=== PATIENT | female | born 1960 | race Two or more races ===

== ENCOUNTER 2024-03-06 | Inpatient (IN) | payer BC, SELFPAY ==
[2024-03-05 14:47] VITALS: BP 122/74
[2024-03-05 15:26] LABS: ALT (SGPT) 12 U/L (0-35); AST (SGOT) 19 U/L (14-36); Albumin 3.2 g/dl (3.5-5.0); Alkaline Phosphatase 125 U/L (38-126); Blood Urea Nitrogen 18 mg/dl (7-17); Calcium 8.5 mg/dl (8.4-10.2); Carbon Dioxide 30 mmol/L (22-30); Chloride 92 mmol/L (98-107); Glucose 154 mg/dl (70-99); Potassium 3.5 mmol/L (3.5-5.1); Sodium 129 mmol/L (135-145); Total Bilirubin 0.7 mg/dl (0.2-1.3); eGFR > 60.00
[2024-03-05 15:32] LABS: NT-proBNP 244 pg/ml
[2024-03-05 15:42] LABS: Hematocrit 32.5 % (37.0-47.0); Hemoglobin 10.8 g/dL (12.0-16.0); Mean Corp Hgb Conc. 33.2 g/dL (33.0-37.0); Mean Corpuscular Hgb 29.3 pg (27.0-31.0); Mean Corpuscular Volume 88.3 fL (81.0-99.0); Mean Platelet Volume 9.3 fL (7.4-10.4); Platelet Count 354 10^3/uL (130-400); Red Blood Cell Count 3.68 10^6/uL (4.20-5.40); Red Cell Dist. Width 15.1 % (11.5-14.5)
[2024-03-05 17:13] LABS: Absolute Neutrophils -Man Diff 4.5 10^3/uL (1.4-6.5); Band Neutrophils 0 % (0-3); Lymphocytes 31 % (20-51); Monocytes 4 % (2-9); Normal RBC Morphology Yes; Platelets Checked Yes; Segmented Neutrophils 65 % (42-75); Total Cells Counted 100
[2024-03-05 18:00] VITALS: BP 140/75
[2024-03-05 20:00] VITALS: BP 133/98
--- NOTE | 2024-03-05 20:08 | ED.GENMED ---
History of Present Illness
General
Chief Complaint: Abdominal Symptoms
Time Seen by Provider: 03/05/24 18:21
History of Present Illness
History of Present Illness:
63 female with history of metastatic colon cancer presents to the emergency department for evaluation of increasing ascites and abdominal discomfort. Patient just moved here from [place] earlier this week, was being treated at [place]
[facility] for peritoneal carcinomatosis. She did have a CT scan on February 27 revealing a large intramural mass within the large intestine with signs of upstream obstruction, increasing volume ascites, and extensive peritoneal
carcinomatosis as well as omental masses. She last received chemotherapy on 02/26. She also reported underwent paracentesis x 2 in January. Her family decided they wanted to move her to [place] to care for her, but did not coordinate any
transfer of care with her oncology team. Over the past week she has developed progressive worsening SOB and leg edema as well as abd pain. No fevers or chills. In regards to the colonic mass, she reports she has occasional constipation but has moved
her bowels adequately in the past 2 days.
Review of Systems
Review of Systems
Allergies reviewed?: Yes
All Other Systems: ROS reviewed and negative except as documented in HPI and ROS
Phy Exam
Physical Exam
Physical Exam:
GEN: Well appearing, NAD, WDWN
Eyes: PERRLA, EOMs intact, no scleral icterus
HENT: NCAT, oral mucosa moist
Lungs: CTAB, no wheezes, rales, rhonchi, normal chest wall excursion
Cardiac: RRR, no M/R/G, no peripheral edema. Radial pulses 2+ bilat
Abdomen: Distended/protuberant abdomen, grossly nontender
Neuro: AO x 3
MSK: No gross deformity or ecchymosis. Marked edema of the entire legs bilaterally from hips to lower legs
Skin: No rashes, petechiae. Normal color, no pallor or jaundice.
Psych: Calm, cooperative, proper hygiene
Course
Orders/Labs/Results
Orders:
Orders
03/05/24 14:58
Complete Blood Count/With Diff Urgent
Comprehensive Metabolic Panel Urgent
Manual Differential Urgent
NT-proBNP Urgent
03/05/24 16:33
CR Chest - 2 Views Urgent
Comment:
Reason For Exam: sob
03/05/24 16:40
US Abdomen Limited Urgent
Comment: EVAL FOR ASCITES
Reason For Exam: abdominal swelling
03/05/24 20:25
Urinalysis Reflex To Culture Urgent
Date Specimen was Collected: 03/05/24
Time Specimen was Collected: 20:04
Urine Microscopic Reflex Cult Urgent
Abnormal Lab Results
03/05/24 03/05/24
14:58 20:25
RBC 3.68 L 10^6/uL
(4.20-5.40)
Hgb 10.8 L g/dL
(12.0-16.0)
Hct 32.5 L %
(37.0-47.0)
RDW 15.1 H %
(11.5-14.5)
Sodium 129 L mmol/L
(135-145)
Chloride 92 L mmol/L
(98-107)
BUN 18 H mg/dl
(7-17)
Glucose 154 H mg/dl
(70-99)
Total Protein 6.0 L g/dl
(6.3-8.2)
Albumin 3.2 L g/dl
(3.5-5.0)
Urine Ketones Trace A
(Negative)
Urine Bilirubin 1+ A
(Negative)
Urine Urobilinogen 2+ A
(Neg - 1+)
Leukocyte Esterase Rfl Trace A
(Negative)
Urine Bacteria (Reflex) Few A
(Negative)
Urine Yeast Few A
(Negative)
03/05/24 14:58
03/05/24 14:58
Vital Signs
Initial and Last Documented VS:
Initial Vital Signs
Temp Pulse Resp BP Pulse Ox
97.8 F 108 18 122/74 96
03/05/24 14:47 03/05/24 14:47 03/05/24 14:47 03/05/24 14:47 03/05/24 14:47
Last Documented Vital Signs
Temp Pulse Resp BP Pulse Ox
98.3 F 102 16 133/98 99
03/05/24 18:00 03/05/24 20:00 03/05/24 20:00 03/05/24 20:00 03/05/24 20:00
MDM/Problems Addressed
MDM/Problems Addressed:
Patient with significant recurrent abdominal pelvic ascites, she has no significant tenderness at this time however she does appear to be profoundly limited functionally due to the degree of ascites. Unfortunately she did not make any arrangements
with her cancer team as an outpatient to transfer care formally down to this locale, it sounds as though the family intends to continue traveling to [place] for chemotherapy but would like to receive all further health care locally. Patient is
afebrile leukocytosis. I did discuss with interventional radiology for possible outpatient paracentesis however unfortunately as we are at the point of the radiologist will not be feasible. Will admit for IR consult for paracentesis as well as SBP
rule out
*Critical Care Note
Total Time (30-74mins, 75-104mins- exclusive of procedures): Not Applicable
Update Note
Update Note:
Patient reporting sensation of urine retention, postvoid bladder scan with 374 mL, uncertain if this is detecting bladder urine or ascites fluid. Straight cath performed by RN for 15 mL
ED Attending Note
-
Portions of this chart may have been created with voice recognition software.� Occasional wrong word or��sound alike� substitutions may have occurred due to the inherent limitations of voice recognition software.
Discharge Plan
Departure
Patient Disposition: Admit
Date of Disposition: 03/05/24
Time of Disposition: 20:22
Presentation/result/management discussed w/ accepting MD/DO: Hospitalist
Discharge Problem:
Abdominal ascites, Peritoneal carcinomatosis
Prescriptions:
No Action
gabapentin 300 mg Capsule
300 mg PO TID
metoclopramide HCl 10 mg Tablet
10 mg PO DAILYPRN PRN (Reason: gerd)
oxycodone 5 mg Tablet
5 mg PO QID
Patient Comments:
03/05/24: Per family patient fills in [place], unable to crosscheck on PDMP
Janumet 50-1,000 mg Tablet
1 tab PO BIDPRN PRN (Reason: low blood sugar)
ondansetron 4 mg Tablet,Disintegrating
4 mg PO Q8HPRN PRN (Reason: nausea)
Referrals:
CORNELIO, EVI [Other]
Interventions
Interventions:
*Risk Screen - Suicide Last Done: 03/05/24 14:47
*General Assessment Last Done: 03/05/24 14:47
*Neglect/Abuse Screening Last Done: 03/05/24 20:10
ED- Fall Risk Assessment Last Done: 03/05/24 20:10
*ED COVID-19 Vaccine History Last Done: 03/05/24 14:47
QA-Mjkmjp-Cxqgfcshxp Assessment Last Done: 03/05/24 20:10
Discharge Date and Time
Print Language: AUSTRALIAN
[2024-03-05 20:32] LABS: Urine Albumin Trace (Neg - Trace); Urine Bilirubin 1+ (Negative); Urine Character Clear (Clear); Urine Color Yellow; Urine Glucose Negative (Negative); Urine Ketone Trace (Negative); Urine Leukocyte Trace (Negative); Urine Nitrite Negative (Negative); Urine Occult Blood Negative (Negative); Urine Specific Gravity 1.025 (<1.030); Urine Urobilinogen 2+ (Neg - 1+)
--- NOTE | 2024-03-05 20:41 | HPS.HSE ---
Family Physician
-
Family Physician: EVI GRIMES
Chief Complaint
-
Increased abdominal pain/distention times a few days with bodyaches
History of Present Illness
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
February 28, 2024 with enlarging infiltrative rectal tumor with trey metastatic disease, splenic metastases and questionable hepatic metastases. Extensive peritoneal carcinomatosis again is noted this enlarging rectal mass resulting in worsening
colonic obstruction with increased distention proximally there is proximal transverse colon luminal narrowing resulting in compression of the transverse colon which is another consideration for colon cancer. There are multiple distended loops of
small bowel representing focal ileus although partially developing obstruction is secondary possibility there is a large malignant abdominal pelvic ascites increased in quantity. Her son states she was receiving care at [facility] in [place]
but they want her to move here to [place] but she currently has [place] insurance she had chemotherapy on January 30 and February 26 Daxol. She then developed increased abdominal pain, swelling, leg edema, shortness of breath.
According to her family she denies fever, chills, headache, chest pain, palpitations, nausea, vomiting, diarrhea, urinary symptoms.
She has past medical history of primary ovarian cancer Dx 2017 status post hysterectomy, bilateral salpingo-oophorectomy, 2019 ovarian cancer with mets to omentum requiring debulking of abdominal cavity, 8 rounds of chemotherapy every 20 days ,
history of 2021 Avstin and Lynparza till September 2022 then repeat scan per son was not well. Chemo was switched to elchara x 3 doses September 2022 she was unable to tolerate then was switched to Doxil January 2024 and February 26 she received a
second dose. She has required abdominal paracentesis x 2. She follows with Dr. Rodriguez at [facility] in [place].
Family is looking for local care here and would like to discuss with case management regarding palliative care versus hospice care if they are able to get her [employer] insurance as she is here on original travel visa and now asylum. Other past
medical history includes neuropathy bilateral legs, chronic nausea chronic abdominal pain, DM2.
Medical History
Past Medical History
Past Medical History: Reports Other
Additional Past Medical History:
primary ovarian cancer Dx 2017 status post hysterectomy, bilateral salpingo-oophorectomy, 2019 ovarian cancer with mets to omentum requiring debulking of abdominal cavity, 8 rounds of chemotherapy every 20 days
history of 2021 Avstin and Lynparza till September 2022 then repeat scan per son was not well.
Chemo was switched to elchara x 3 doses September 2022 she was unable to tolerate then was switched to Doxil January 2024 and February 27, 2024 she received a second dose.
She has required abdominal paracentesis x 2. She follows with Dr. Rodriguez at [facility] in [place].
Chronic neuropathy bilateral legs left greater than right
DM2
Chronic pain
Chronic nausea
Past Surgical History: Reports Other
Additional Past Surgical History:
Paracentesis x 2
Social History
Tobacco: Non-smoker
Alcohol: None
Drug: None
Personal: Single
Living: With Family
Employment: Retired
Family History
Family History: Other (Patient's daughter of ovarian cancer age 40 same type as patient per son)
Allergies / Home Medications
Allergies reflects when Allergies were last updated in [facility].
Home Medications with original date entered in [facility]
Allergy/Medication List:
Allergies
Allergy/AdvReac Type Severity Reaction Status Date / Time
Penicillins Allergy Unknown Verified 03/05/24 14:51
Home Medications
gabapentin 300 mg capsule 300 mg PO TID 03/05/24
metoclopramide HCl 10 mg tablet 10 mg PO DAILYPRN PRN gerd 03/05/24
ondansetron 4 mg disintegrating tablet 4 mg PO Q8HPRN PRN nausea 03/05/24
oxycodone 5 mg tablet 5 mg PO QID 03/05/24
sitagliptin phosphate 50 mg-metformin 1,000 mg tablet (Janumet) 1 tab PO BIDPRN PRN low blood sugar 03/05/24
Review of Systems
-
History Source: Family (Daughter and son at bedside)
A 12 point ROS was completed and negative except as noted: Yes
Constitutional: Reports Weight Gain; Denies Fever or Chills
EENT: Denies Sore Throat or Runny Nose
Respiratory: Reports Trouble Breathing; Denies Cough
Cardiac: Denies Chest Pain or Diaphoresis
Abdomen/GI: Reports Abdominal Pain (Increased abdominal girth) and Anorexia; Denies Nausea, Vomiting, Diarrhea or Constipated
: Denies Dysuria, Frequency, Flank Pain, Incontinence or Difficulty Voiding
Musculoskeletal: Reports Edema (+2 from lower feet to upper thighs); Denies Joint Pain
Skin: Denies Itching or Rash
Neurological: Reports Weakness
Endocrine: Reports No Symptoms
Hematologic/Lymphatic: Reports No Symptoms
Psych: Reports Calm
Physical Exam
Vital Signs
Vital Signs
Temp Pulse Resp BP Pulse Ox
98.3 F 111 16 140/75 97
03/05/24 18:00 03/05/24 18:00 03/05/24 18:00 03/05/24 18:00 03/05/24 18:00
Physical Exam
General: Conversant, Pain, Obese and Other (None Nigerian speaking patient speaks Syriac); No Fever or Chills
HEENT: NormoCephalic, Anicteric, Moist mucous membranes, PERRLA and [place] Conjunctivae
Respiratory: Clear; No Wheezes, Rales or Rhonchi
Cardiac: S1/S2 and Regular Rhythm; No Murmur, Rub or Gallop
GI: Other (Distended abdomen with large amount of ascites)
Rectal: Deferred by Provider
Genito-urinary: Deferred by me
Musculoskeletal: No Clubbing, No Cyanosis, Edema, Left Lower Extremity (+2 from feet to upper thighs) and Edema, Right Lower Extremity (+2 from feet to upper thighs); No Edema, Left Upper Extremity or Edema, Right Upper Extremity
Skin: Warm and Dry; No Rash
Neuro: Awake, Alert (Patient will say occasional words to daughter and son however in sleetmute language I am not sure if she is oriented), No Motor Deficits and Cranial Nerves Intact; No Slurred Speech, Facial Droop or Tremors
Psych: Calm
Laboratory Results
-
03/05/24 14:58
03/05/24 14:58
Laboratory Results
Total Bilirubin 0.7 mg/dl (0.2-1.3) 03/05/24 14:58
AST 19 U/L (14-36) 03/05/24 14:58
ALT 12 U/L (0-35) 03/05/24 14:58
Alkaline Phosphatase 125 U/L (38-126) 03/05/24 14:58
Impression/Plan
-
Impression/plan:
Admit to [facility]
#Moderate volume ascites left upper quadrant/left lower quadrant, right upper quadrant/right lower quadrant secondary to peritoneal carcinomatosis
History of paracentesis times 13 January 2024
WBC 7, 98.3F, HR 111, 140/75
-Consult Interventional radiology for paracentesis
-Obtain records from [facility] oncology
-consult case mgt regarding getting pa insurance from [place] insurance to be able to receive paracentesis here, oncology visit discussion with palliative versus hospice care
-Hold oxycodone 5 mg p.o. 4 times daily changed to IV morphine as needed given developing obstruction
Ultrasound limited: Moderate volume ascites in the right quadrant, right lower quadrant, left upper quadrant and left lower quadrant
-Primary ovarian CA with new metastases primary ovarian cancer to rectum, with trey metastatic disease, splenic metastases, hepatic metastases
#Primary ovarian cancer Dx 2017 status post hysterectomy, bilateral salpingo-oophorectomy
Return of cancer 2019 Omomentum/abdominal cavity requiring debulking of abdomen and chemotherapy started.
-Chemo 2020 unsure name then started Avastin�2022 with Lynparza till September 2022
Metastases of primary ovarian cancer was started on elchara September 30 23 x 3> Doxil January 2024 and February 27, 2024 at [facility]
-Needs case management for palliative versus hospice care but needs [place] insurance
-Consult unk
CT abdomen pelvis with contrast on 02/23/2024 per patient's records
1. Interval disease with infiltrative rectal tumor with trey metastatic disease, splenic metastases and questionable hepatic metastases.
2 Extensive peritoneal carcinomatosis again noted enlarging rectal mass resulting in worsening colonic obstruction with increased distention proximally
3.Increased prominence of the soft tissue along the transverse colon resulting in luminal narrowing and extrinsic compression of the transverse colon.
4.Peritoneal deposits becoming conspicuous along the gastroduodenal junction along with increased narrowing of the gastroduodenal junction.
5. multiple mildly distended loops of small bowel concerning for developing obstruction
#Developing obstruction
-N.p.o.
-Will change oxycodone 5 mg p.o. 4 times daily to morphine 2 mg mild pain, 4 mg severe pain
-IV Zofran as needed
#Hypervolemic hyponatremia adding of ascites
NA 129
Urine NA, urine Osmo, serum Osmo, TSH with free T4 reflex
##DM2
Hold Janumet
Accu-Cheks with SSI low
- n.p.o.
#Normocytic anemia
Hgb 10.8, MCV 88.3
#Neuropathy bilateral legs left greater than right secondary to chemo
-Continue gabapentin 300 mg 3 times daily
DNR per patient's son RENO�[phone] please discuss all care with patient's son including any palliative/hospice patient's daughter also in agreement at bedside andnilufar
[2024-03-05 21:06] LABS: Urine Hyaline Cast >15 /LPF (0-2); Urine Squamous Cell >30 /LPF (Few)
[2024-03-05 21:07] LABS: Urine Bacteria Few (Negative); Urine Red Blood Cell 0-2 /HPF (0-2); Urine Yeast Few (Negative)
--- NOTE | 2024-03-05 22:22 | W.PN.UPDATE ---
Update Note
Progress Note Update
This is an addendum to the H&P written by Bettina Lemus on 03/05/2024.
Patient seen and examined independently with PLASTIC MOLDING OPERATOR.
63-year-old female past medical history of ovarian cancer with metastases to rectum, colon, spleen, colonic obstruction, peritoneal carcinomatosis on chemotherapy last received at [facility] last week presenting with acute abdominal pain and
distention. Abdominal ultrasound shows moderate ascites.
IR consulted for therapeutic paracentesis. Family is realistic of patient's condition and are agreeable for case management/ essentially hospice.
[2024-03-05 22:30] VITALS: BP 132/71
[2024-03-06] VITALS (9 sets, daily range): BP systolic 98–131; BP diastolic 63–84; BMI 27.7
[2024-03-06] MEDS: MORPHINE SULFATE 4 MG IV (01:01)
--- NOTE | 2024-03-06 01:43 | PTCARENOTE ---
Patient arrived to unit from ED via stretcher. Patient able to safely ambulate into room 334 with assist x1. Patient Canadian speaking, son and daughter at bedside. Patient c/o pain. No IV, IV team notified. IV placed by BARGE CAPTAIN. PRN morphine
administered. Oriented to unit. Call hinds within reach. Plan of care ongoing.
[2024-03-06] MEDS: MORPHINE SULFATE 2 MG IV (06:02)
[2024-03-06 06:43] LABS: % Basophils 0.4 % (0-2); % Eosinophils 1.1 % (0-6); % Immature Granulocytes 1.2 % (0-0.5); % Lymphocytes 26.1 % (20.5-51.1); % Monocytes 4.6 % (1.7-9.3); % Neutrophils 66.6 % (42.2-75.2); Absolute Eosinophils 0.1 10^3/uL (0-0.7); Absolute Immature Granulocytes 0.1 10^3/uL (0-0.05); Absolute Lymphocytes 1.5 10^3/uL (1.2-3.4); Absolute Monocytes 0.3 10^3/uL (0.1-0.6); Absolute Neutrophils 3.8 10^3/uL (1.4-6.5); Hematocrit 29.8 % (37.0-47.0); Mean Corp Hgb Conc. 33.6 g/dL (33.0-37.0); Mean Corpuscular Hgb 29.3 pg (27.0-31.0); Mean Corpuscular Volume 87.4 fL (81.0-99.0); Mean Platelet Volume 9.5 fL (7.4-10.4); Nucleated Red Blood Cells % 0 %; Platelet Count 320 10^3/uL (130-400); Red Blood Cell Count 3.41 10^6/uL (4.20-5.40); Red Cell Dist. Width 14.9 % (11.5-14.5); White Blood Cell Count 5.7 10^3/uL (4.8-10.8)
[2024-03-06 06:57] LABS: Osmolality Serum 277 mOsm/kg (275-300)
[2024-03-06 07:07] LABS: ALT (SGPT) < 10 U/L (0-35); AST (SGOT) 19 U/L (14-36); Albumin 2.7 g/dl (3.5-5.0); Alkaline Phosphatase 109 U/L (38-126); Blood Urea Nitrogen 17 mg/dl (7-17); Calcium 7.8 mg/dl (8.4-10.2); Carbon Dioxide 30 mmol/L (22-30); Chloride 93 mmol/L (98-107); Estimated Creatinine Clearance 74 ml/min; Glucose 95 mg/dl (70-99); Potassium 3.4 mmol/L (3.5-5.1); Sodium 130 mmol/L (135-145); Total Bilirubin 0.7 mg/dl (0.2-1.3); Total Protein 5.2 g/dl (6.3-8.2); eGFR > 60.00
[2024-03-06 07:37] LABS: TSH Reflex To Free T4 5.77 uIU/ml (0.47-4.68)
[2024-03-06 08:08] LABS: Free T4 1.15 ng/dl (0.78-2.19)
[2024-03-06] MEDS: ZOFRAN 4 MG IV (08:21)
[2024-03-06] MEDS: NEURONTIN 300 MG PO ×3 (08:22→21:13)
--- NOTE | 2024-03-06 11:07 | CM ---
Addendum entered by Charline Gaytan 03/06/24 14:36:
Family Physician verified: Swetha Smith MD; [address] [facility], [place] [address];
Addendum entered by Charline Gaytan 03/06/24 14:01:
No Family Physician identified; asked son to provide
Offered [facility], [facility]
Addendum entered by Charline Gaytan 03/06/24 13:53:
CM spoke with [facility] vinicio; per her instructions, home health referral submitted via [facility] to [facility]
Addendum entered by Charline Gaytan 03/06/24 13:26:
CM spoke to patient's son, Yogesh Carrillo, via phone. Son speaks Turkmen.
Son verified that the patient resides in [place] but is currently living with him at his home in [place], [place]
Son verified patient's health insurance; [facility] [employer] # [id number]
Son's Address: [address] [place] [address], [place], [place]
Son's Cell ; and alternate cell phone # [phone]
CM spoke with Admissions Office via phone and provided above information
Addendum entered by Charline Gaytan 03/06/24 13:22:
Hospice is not in patient's insurance network
Advised CM to send referral to alternative hospice agencies
Original Note:
Case Management Consult completed; Hospice Referral submitted to Hospice via [facility]
[2024-03-06] MEDS: OMNIPAQUE 50 ML PO (11:09)
[2024-03-06 12:05] LABS: Body Fluid Albumin 1.6 g/dl; Body Fluid Amylase < 30 U/L
[2024-03-06 12:06] LABS: Body Fluid LDH 137 U/L; Body Fluid Protein 3.3 g/dl
[2024-03-06] MEDS: ROXICODONE 5 MG PO ×3 (12:22→22:32)
[2024-03-06 12:42] LABS: Body Fluid WBC 601 /CUMM
[2024-03-06 12:43] LABS: Body Fluid Mononuclear 93.8 %; Body Fluid Polymorphonuclear 6.2 %
[2024-03-06 13:00] LABS: Body Fluid Second Tech CMB
--- NOTE | 2024-03-06 13:19 | W.PN.HOSP.TC ---
Today's Communication/Plan
-
CT abdomen pelvis with IV/oral contrast
Maintain full liquid diet
Increased pain medication
High risk of bowel obstruction and related complication
Poor prognosis and hospice appropriate
Assessment / Plan
Assessment / Plan
CT abdomen pelvis with contrast on 02/23/2024 per patient's records
1. Interval disease with infiltrative rectal tumor with trey metastatic disease, splenic metastases and questionable hepatic metastases.
2 Extensive peritoneal carcinomatosis again noted enlarging rectal mass resulting in worsening colonic obstruction with increased distention proximally
3.Increased prominence of the soft tissue along the transverse colon resulting in luminal narrowing and extrinsic compression of the transverse colon.
4.Peritoneal deposits becoming conspicuous along the gastroduodenal junction along with increased narrowing of the gastroduodenal junction.
5. multiple mildly distended loops of small bowel concerning for developing obstruction

1. Moderate ascites
-Ultrasound abdomen showing moderate ascites
-With history of known metastatic ovarian cancer/peritoneal carcinomatosis presumed malignant in nature unless proven otherwise
-Patient underwent paracentesis with drainage of 3.7 L of clear ascitic fluid
-Fluid studies showing T WBC 601, 94% mononuclear cell.
2. Primary ovarian cancer diagnosed in 2017
Metastatic to rectum/liver/spleen/liver
S/p hysterectomy and BSO
Recurrence in 2019 requiring debulking surgery/chemotherapy
-Chemo 2020 unsure name then started Avastin
�2021 with Lynparza till September 2022
-Metastases of primary ovarian cancer was started on elchara in September 30 23 x 3 > Doxil January 2024 and February 27, 2024 at [facility]
3. Partial colon obstruction
Gastroduodenal junction obstruction
Small bowel obstruction
-Significant peritoneal carcinomatosis with CTAP from outside facility showing multiple dilated small bowel loops concerning developing small bowel obstruction
-Involving gastroduodenal junction and possible gastric outlet obstruction developing as well
-Reported transverse colon lesion as well causing colonic obstruction
-Repeat CT abdomen pelvis has been ordered
-Case discussed with gastroenterology and may involve CRS/GI for colonic stenting if appropriate as part of comfort measures
4. Hyponatremia
-presumed to be malignancy related
-May have component of hypervolemic hyponatremia as well
5. NIDDM
-Maintain on Janumet
6.Normocytic anemia
-Hgb 10.8, MCV 88.3
7. Chemotherapy-induced neuropathy
-Continue gabapentin 300 mg 3 times daily
DNR per patient's son RENO�[phone] please discuss all care with patient's son including any palliative/hospice patient's daughter also in agreement at bedside
Care plan discussed with other regulatory affairs consultant off consults.
Discussed with Patient Son at Bedside
Case management updated
Total time spent : 55 mins
I personally saw and examined the patient.
I have reviewed all diagnostic interpretations and treatment plans as written.
Time includes patient management by me, time spent at the patients bedside, time to review lab and imaging results, discussing patient care, documentation in the medical record, and time spent with the family or caregiver and discussing care plan
with RN/Consultants.
Anticipated Discharge: 24 - 48 hours
Subjective/Interval History
-
Date of Service: March 06, 2024
Patient having some diffuse abdominal discomfort
Had bowel movement/passing gas last night
Some nausea no vomiting
Vitally stable
Objective Data
-
Labs:
Laboratory Results
03/06/24
05:51
WBC 5.7
Hgb 10.0 L
Hct 29.8 L
Plt Count 320
Sodium 130 L
Potassium 3.4 L
Chloride 93 L
Carbon Dioxide 30
BUN 17
Creatinine 0.7
Glucose 95
Calcium 7.8 L
Total Bilirubin 0.7
AST 19
ALT < 10
Alkaline Phosphatase 109
Vital Signs:
Vital Signs
Temp Pulse Resp BP Pulse Ox
97.2 F 107 16 98/63 97
03/06/24 11:08 03/06/24 11:08 03/06/24 11:08 03/06/24 11:08 03/06/24 11:08
I&O
03/05/24 03/06/24 03/07/24
06:59 06:59 06:59
Output Total 15 / 15
Balance -15 / -15
Review of Systems
-
Respiratory: Reports No Symptoms
Cardiac: Reports No Symptoms
Abdomen/GI: Reports Abdominal Pain; Denies Nausea or Vomiting
Physical Exam
-
General: No Apparent Distress and Comfortable
HEENT: Negative Oxygen
Respiratory: Clear to Auscultation
Cardiac: Regular Rhythm and S1/S2; Negative Murmur or Rub
GI: Soft, Tender (minimal and diffuse) and Distended; Negative Normal Bowel Sounds (Decreased bowel sounds)
Musculoskeletal: No Edema
Neuro: Awake, Alert, Oriented, No Motor Deficits and Nonfocal/Grossly Intact
Psych: Calm
--- NOTE | 2024-03-06 14:00 | HOSPNOTE ---
Hospice referral received. We are not a participating provider with patients insurance for hospice services. CM updated.
[2024-03-06 20:27] LABS: Osmolality Urine 645 mOsm/kg (300-900)
[2024-03-06 20:33] LABS: Urine Sodium < 5 mmol/L (30-90)
--- NOTE | 2024-03-06 22:19 | PTCARENOTE ---
Patient with HR sustaining 130-140s for period of time throughout the evening. Patient OOB to bathroom at one point during this elevation -- asymptomatic and no complaints. BPs soft, 110/70, HR 135, no medications ordered PRN for rate control.
Notified DOMENIC Lopez -- would like patient to stay in bed if possible and encourage bed rest at this time. As patient/family is considering hospice/palliative care -- will discuss with day team for medication options if needed. No new interventions
at this time. Will continue to moitor.
[2024-03-07 03:00] VITALS: BP 97/71
[2024-03-07] MEDS: ROXICODONE 10 MG PO ×3 (03:05→21:17)
[2024-03-07 05:32] VITALS: BMI 26.4
[2024-03-07 07:05] VITALS: BP 111/77
[2024-03-07 08:17] LABS: ALT (SGPT) < 10 U/L (0-35); AST (SGOT) 19 U/L (14-36); Albumin 2.6 g/dl (3.5-5.0); Alkaline Phosphatase 103 U/L (38-126); Blood Urea Nitrogen 18 mg/dl (7-17); Calcium 7.9 mg/dl (8.4-10.2); Carbon Dioxide 25 mmol/L (22-30); Chloride 92 mmol/L (98-107); Estimated Creatinine Clearance 73 ml/min; Glucose 138 mg/dl (70-99); Potassium 3.8 mmol/L (3.5-5.1); Sodium 128 mmol/L (135-145); Total Bilirubin 1.1 mg/dl (0.2-1.3); Total Protein 4.9 g/dl (6.3-8.2); eGFR > 60.00
[2024-03-07] MEDS: NEURONTIN 300 MG PO ×3 (08:26→21:17)
[2024-03-07] MEDS: ZOFRAN 4 MG IV ×3 (08:26→23:23)
--- NOTE | 2024-03-07 10:47 | CON.GI ---
Consultation
-
Date/Time Consultation Requested: 03/06/24 929
Date/Time Consultation Performed: 03/07/24 0900
Requesting Provider: Dr Albino Salvador
Performing Provider: Dr Pedro Luis Chapman / Carisa Champagne PA-C
Reason for Consultation: metastaic cancer / partial colon obstuction
Medical History
Chief Complaint / HPI
Chief Complaint: abdominal pain
History of Present Illness:
This is a 63 year old female with a past medical history of ovarian cancer (dx'd 2017) with metastasis to peritoneum, spleen, liver, and rectum who was previously living in [place] (Oncology care was at [facility]) with increasing
abdominal pain and distension. Per patient's prior records, CT abdomen/pelvis from 02/23/24 showed extensive peritoneal carcinomatosis with enlarging rectal mass resulting in worsening colonic obstruction with increased distention proximally.
Infiltrative rectal tumor with trey metastatic disease noted, as well as splenic metastasis and questionable hepatic metastasis. Increased prominence of the soft tissue along the transverse colon, resulting in luminal narrowing and extrinsic
compression of the transverse colon, as well as peritoneal deposits along the gastroduodenal junction with increased narrowing at the gastroduodenal junction. Mildly distended loops of small bowel which are concerning for developing obstruction.
GI is asked to consult on this case for potential colonic stenting. She did undergo paracentesis yesterday with 3.7 liters removed. She does feel somewhat better after paracentesis. Still with nausea and pain, although Zofran and pain medications
are helping. She did pass a small bowel movement last night and is passing gas.
Past Medical History
Past Medical History: NIDDM and Other (primary ovarian cancer Dx 2017 status post hysterectomy, bilateral salpingo-oophorectomy, 2019 ovarian cancer with mets to omentum requiring debulking of abdominal cavity, 8 rounds of chemotherapy)
Social History
Tobacco: Non-Smoker
Alcohol: None
Drug: None
Living: With Family
Allergies / Home Medications
Allergy/AdvReac Type Severity Reaction Status Date / Time
Penicillins Allergy Unknown Verified 03/05/24 14:51
�Medication �Instructions �Recorded
gabapentin 300 mg capsule 300 mg PO TID Pain 03/05/24
metoclopramide HCl 10 mg tablet 10 mg PO DAILYPRN PRN gerd 03/05/24
ondansetron 4 mg disintegrating 4 mg PO Q8HPRN PRN nausea 03/05/24
tablet
oxycodone 5 mg tablet 5 mg PO QID Pain 03/05/24
sitagliptin phosphate 50 1 tab PO BIDPRN PRN low blood sugar 03/05/24
mg-metformin 1,000 mg tablet
(Janumet)
Review of Systems
-
History Source: Patient, Family and Other (prior records)
Vital Signs
Temp Pulse Resp BP Pulse Ox
97.7 F 111 17 111/77 97
03/07/24 07:05 03/07/24 07:05 03/07/24 07:05 03/07/24 07:05 03/07/24 07:05
Physical Exam
Exam
General: Well Developed, Well Nourished and No Apparent Distress
Respiratory: Clear
Cardiac: Regular Rhythm
GI: Soft, Non Tender, Normal Bowel Sounds and Distended
Skin: Warm and Dry
Neuro: Awake and Alert
Psych: Calm
Results
WBC 5.7 10^3/uL (4.8-10.8) 03/06/24 05:51
Hgb 10.0 g/dL (12.0-16.0) L 03/06/24 05:51
Hct 29.8 % (37.0-47.0) L 03/06/24 05:51
MCV 87.4 fL (81.0-99.0) 03/06/24 05:51
Plt Count 320 10^3/uL (130-400) 03/06/24 05:51
Absolute Neuts (auto) 3.8 10^3/uL (1.4-6.5) 03/06/24 05:51
Sodium 128 mmol/L (135-145) L 03/07/24 06:37
Potassium 3.8 mmol/L (3.5-5.1) 03/07/24 06:37
Chloride 92 mmol/L (98-107) L 03/07/24 06:37
Carbon Dioxide 25 mmol/L (22-30) 03/07/24 06:37
BUN 18 mg/dl (7-17) H 03/07/24 06:37
Creatinine 0.7 mg/dL (0.6-1.0) 03/07/24 06:37
Calcium 7.9 mg/dl (8.4-10.2) L 03/07/24 06:37
Total Bilirubin 1.1 mg/dl (0.2-1.3) 03/07/24 06:37
AST 19 U/L (14-36) 03/07/24 06:37
ALT < 10 U/L (0-35) 03/07/24 06:37
Alkaline Phosphatase 103 U/L (38-126) 03/07/24 06:37
Diagnostic Image Results:
CT abdomen pelvis with contrast on 02/23/2024 per patient's records
1. Interval disease with infiltrative rectal tumor with trey metastatic disease, splenic metastases and questionable hepatic metastases.
2 Extensive peritoneal carcinomatosis again noted enlarging rectal mass resulting in worsening colonic obstruction with increased distention proximally
3.Increased prominence of the soft tissue along the transverse colon resulting in luminal narrowing and extrinsic compression of the transverse colon.
4.Peritoneal deposits becoming conspicuous along the gastroduodenal junction along with increased narrowing of the gastroduodenal junction.
5. multiple mildly distended loops of small bowel concerning for developing obstruction
Prior GI Procedures:
EGD:
Colonoscopy:
Assessment / Plan
-
63 year old female with extensive metastatic ovarian cancer with peritoneal caricnomatosis, with CT findings of partial colon obstruction, gastroduodenal junction narrowing and possible developing small bowel obstruction, who at this time is passing
gas and small amount of stool, and s/p paracentesis yesterday with removal of 3.7 liters of ascitic fluid. GI is asked to consult patieint for consideration of colonic stenting.
IMPRESSION / PLAN:
Extensive metastatic ovarian cancer with complicated partial colon obstruction, gastroduodenal junction narrowing and possible developing small bowel obstruction
- she did have repeat CT imaging yesterday, awaiting radiology read to ensure no progression
- given the extensive nature of her metastatic disease, uncertain if patient will be a candidate for colonic stenting. Dr. Chapman to discuss further with advanced endoscopist, Dr. Pederson
- await Oncology consult
- recommend Palliative Care consultation given poor prognosis
-
-
Thank you for consultation and allowing me to participate in the patient's care. Please call the manager provider relations GI physician during the after hours with any questions or concerns.
[2024-03-07 10:48] LABS: % Basophils 0.4 % (0-2); % Eosinophils 0.1 % (0-6); % Immature Granulocytes 1.4 % (0-0.5); % Lymphocytes 16.7 % (20.5-51.1); % Monocytes 3.4 % (1.7-9.3); Absolute Immature Granulocytes 0.1 10^3/uL (0-0.05); Absolute Lymphocytes 1.4 10^3/uL (1.2-3.4); Absolute Monocytes 0.3 10^3/uL (0.1-0.6); Absolute Neutrophils 6.6 10^3/uL (1.4-6.5); Hemoglobin 10.6 g/dL (12.0-16.0); Mean Corp Hgb Conc. 33.1 g/dL (33.0-37.0); Mean Corpuscular Hgb 29.4 pg (27.0-31.0); Mean Corpuscular Volume 88.6 fL (81.0-99.0); Mean Platelet Volume 10.2 fL (7.4-10.4); Nucleated Red Blood Cells % 0 %; Platelet Count 319 10^3/uL (130-400); Red Blood Cell Count 3.61 10^6/uL (4.20-5.40); Red Cell Dist. Width 15.1 % (11.5-14.5); White Blood Cell Count 8.4 10^3/uL (4.8-10.8)
[2024-03-07 11:05] VITALS: BP 117/73
--- NOTE | 2024-03-07 13:28 | W.PN.HOSP.TC ---
Today's Communication/Plan
-
await ct a/p report
continue liquid diet
pain control
eventual home hospice placement
Assessment / Plan
Assessment / Plan
CT abdomen pelvis with contrast on 02/23/2024 per patient's records
1. Interval disease with infiltrative rectal tumor with trey metastatic disease, splenic metastases and questionable hepatic metastases.
2 Extensive peritoneal carcinomatosis again noted enlarging rectal mass resulting in worsening colonic obstruction with increased distention proximally
3.Increased prominence of the soft tissue along the transverse colon resulting in luminal narrowing and extrinsic compression of the transverse colon.
4.Peritoneal deposits becoming conspicuous along the gastroduodenal junction along with increased narrowing of the gastroduodenal junction.
5. multiple mildly distended loops of small bowel concerning for developing obstruction

1. Moderate ascites
-Ultrasound abdomen showing moderate ascites
-With history of known metastatic ovarian cancer/peritoneal carcinomatosis presumed malignant in nature unless proven otherwise
-Patient underwent paracentesis with drainage of 3.7 L of clear ascitic fluid
-Fluid studies showing T WBC 601, 94% mononuclear cell.
2. Primary ovarian cancer diagnosed in 2016
Metastatic to rectum/liver/spleen/liver
S/p hysterectomy and BSO
Recurrence in 2019 requiring debulking surgery/chemotherapy
-Chemo 2020 unsure name then started Avastin
�2021 with Lynparza till September 2022
-Metastases of primary ovarian cancer was started on elchara in September 30 23 x 3 > Doxil January 2024 and February 27, 2024 at [facility]
3. Partial colon obstruction
Gastroduodenal junction obstruction
Small bowel obstruction
-Significant peritoneal carcinomatosis with CTAP from outside facility showing multiple dilated small bowel loops concerning developing small bowel obstruction
-Involving gastroduodenal junction and possible gastric outlet obstruction developing as well
-Reported transverse colon lesion as well causing colonic obstruction
-Repeat CT abdomen pelvis has been done, report is pending.
-Case discussed with GI.
4. Hyponatremia
-presumed to be malignancy related
-May have component of hypervolemic hyponatremia as well
5. NIDDM
-Maintain on Janumet
6.Normocytic anemia
-Hgb 10.8, MCV 88.3
7. Chemotherapy-induced neuropathy
-Continue gabapentin 300 mg 3 times daily
DNR per patient's son [phone] please discuss all care with patient's son including any palliative/hospice patient's daughter also in agreement at bedside
Total time spent : 52 mins
I personally saw and examined the patient.
I have reviewed all diagnostic interpretations and treatment plans as written.
Time includes patient management by me, time spent at the patients bedside, time to review lab and imaging results, discussing patient care, documentation in the medical record, and time spent with the family or caregiver and discussing care plan
with RN/Consultants.
Anticipated Discharge: 24 - 48 hours
Subjective/Interval History
-
Date of Service: March 07, 2024
Difficulty passing gas today, feeling bloated
Some nausea no vomiting
Objective Data
-
Labs:
Laboratory Results
03/07/24
06:37
WBC 8.4
Hgb 10.6 L
Hct 32.0 L
Plt Count 319
Sodium 128 L
Potassium 3.8
Chloride 92 L
Carbon Dioxide 25
BUN 18 H
Creatinine 0.7
Glucose 138 H
Calcium 7.9 L
Total Bilirubin 1.1
AST 19
ALT < 10
Alkaline Phosphatase 103
Vital Signs:
Vital Signs
Temp Pulse Resp BP Pulse Ox
97.6 F 110 17 117/73 97
03/07/24 11:05 03/07/24 11:05 03/07/24 11:05 03/07/24 11:05 03/07/24 11:05
I&O
03/06/24 03/07/24 03/08/24
06:59 06:59 06:59
Intake Total 240 / 240
Output Total 15 / 15
Balance -15 / -15 240 / 240
Review of Systems
-
Respiratory: Reports No Symptoms
Cardiac: Reports No Symptoms
Abdomen/GI: Reports No Symptoms
Physical Exam
-
General: No Apparent Distress and Comfortable
HEENT: Negative Oxygen
Respiratory: Clear to Auscultation
Cardiac: Regular Rhythm and S1/S2; Negative Murmur or Rub
GI: Soft, Tender (minimal and diffuse) and Distended; Negative Normal Bowel Sounds (Decreased bowel sounds)
Musculoskeletal: No Edema
Neuro: Awake, Alert, Oriented, No Motor Deficits and Nonfocal/Grossly Intact
Psych: Calm
[2024-03-07 15:00] VITALS: BP 102/59
[2024-03-07 19:30] VITALS: BP 98/70
[2024-03-07 23:35] VITALS: BP 107/65
[2024-03-08 03:45] VITALS: BP 115/69
[2024-03-08 06:00] VITALS: BMI 26.4
[2024-03-08 06:40] LABS: % Basophils 0.5 % (0-2); % Eosinophils 0.2 % (0-6); % Immature Granulocytes 1.3 % (0-0.5); % Lymphocytes 15.8 % (20.5-51.1); % Monocytes 4.4 % (1.7-9.3); % Neutrophils 77.8 % (42.2-75.2); Absolute Immature Granulocytes 0.1 10^3/uL (0-0.05); Absolute Monocytes 0.3 10^3/uL (0.1-0.6); Absolute Neutrophils 4.8 10^3/uL (1.4-6.5); Hematocrit 29.8 % (37.0-47.0); Hemoglobin 9.7 g/dL (12.0-16.0); Mean Corp Hgb Conc. 32.6 g/dL (33.0-37.0); Mean Corpuscular Hgb 29.2 pg (27.0-31.0); Mean Corpuscular Volume 89.8 fL (81.0-99.0); Mean Platelet Volume 9.5 fL (7.4-10.4); Nucleated Red Blood Cells % 0 %; Platelet Count 272 10^3/uL (130-400); Red Blood Cell Count 3.32 10^6/uL (4.20-5.40); White Blood Cell Count 6.2 10^3/uL (4.8-10.8)
[2024-03-08] MEDS: ZOFRAN 4 MG IV (06:49)
[2024-03-08 07:05] VITALS: BP 110/63
[2024-03-08 07:08] LABS: ALT (SGPT) < 10 U/L (0-35); AST (SGOT) 17 U/L (14-36); Albumin 2.4 g/dl (3.5-5.0); Alkaline Phosphatase 110 U/L (38-126); Blood Urea Nitrogen 16 mg/dl (7-17); Calcium 7.9 mg/dl (8.4-10.2); Carbon Dioxide 27 mmol/L (22-30); Chloride 92 mmol/L (98-107); Estimated Creatinine Clearance 73 ml/min; Glucose 124 mg/dl (70-99); Potassium 3.8 mmol/L (3.5-5.1); Sodium 128 mmol/L (135-145); Total Bilirubin 0.8 mg/dl (0.2-1.3); Total Protein 4.8 g/dl (6.3-8.2); eGFR > 60.00
[2024-03-08] MEDS: ROXICODONE 5 MG PO (09:20)
[2024-03-08] MEDS: NEURONTIN 300 MG PO ×3 (09:20→20:44)
--- NOTE | 2024-03-08 14:06 | W.PN.HOSP.TC ---
Today's Communication/Plan
-
see note
Assessment / Plan
Assessment / Plan
CT abdomen pelvis with contrast on 02/23/2024 per patient's records
1. Interval disease with infiltrative rectal tumor with trey metastatic disease, splenic metastases and questionable hepatic metastases.
2 Extensive peritoneal carcinomatosis again noted enlarging rectal mass resulting in worsening colonic obstruction with increased distention proximally
3.Increased prominence of the soft tissue along the transverse colon resulting in luminal narrowing and extrinsic compression of the transverse colon.
4.Peritoneal deposits becoming conspicuous along the gastroduodenal junction along with increased narrowing of the gastroduodenal junction.
5. multiple mildly distended loops of small bowel concerning for developing obstruction
CT a/p with IV/Oral contrast
Official read is not in -per radiology there is a glitch in EMR, will try to correct tomorrow. Short impression report provided by radiology over [place] text is just below
1). There are multiple peritoneal implants as detailed above which if clinically indicated, could be best further evaluated with PET scan including an area of soft tissue prominence at the distal sigmoid colon which may be malignant or secondary to
incomplete distention.
2). There is moderately extensive partially loculated ascites throughout the abdomen and pelvis.
3). There are approximately 8 subcentimeter low density splenic lesions which may be benign or malignant and could also be further evaluated with PET scan

1. Moderate ascites
-Ultrasound abdomen showing moderate ascites
-With history of known metastatic ovarian cancer/peritoneal carcinomatosis presumed malignant in nature unless proven otherwise
-Patient underwent paracentesis with drainage of 3.7 L of clear ascitic fluid
-Fluid studies showing T WBC 601, 94% mononuclear cell.
2. Primary ovarian cancer diagnosed in 2017
Metastatic to rectum/liver/spleen/liver
S/p hysterectomy and BSO
Recurrence in 2019 requiring debulking surgery/chemotherapy
-Chemo 2020 unsure name then started Avastin
�2021 with Lynparza till September 2022
-Metastases of primary ovarian cancer was started on elchara in September 30 23 x 3 > Doxil January 2024 and February 27, 2024 at [facility]
3. Partial colon obstruction
Gastroduodenal junction obstruction
Small bowel obstruction
-Significant peritoneal carcinomatosis with CTAP from outside facility showing multiple dilated small bowel loops concerning developing small bowel obstruction
-Involving gastroduodenal junction and possible gastric outlet obstruction developing as well
-Reported transverse colon lesion as well causing colonic obstruction
-Repeat CT abdomen pelvis report as above. GI is planning to talk with interventional manager workers compensation if patient is a candidate for palliative colonic stenting.
-Patient remains appropriate for home hospice placement after medically cleared. Patient have [id number] insurance and case management help will be required arranging hospice help.
4. Hyponatremia
-presumed to be malignancy related
-May have component of hypervolemic hyponatremia as well
5. NIDDM
-Maintain on Janumet
6.Normocytic anemia
-Hgb 10.8, MCV 88.3
7. Chemotherapy-induced neuropathy
-Continue gabapentin 300 mg 3 times daily
DNR per patient's son RENO�[phone] please discuss all care with patient's son including any palliative/hospice patient's daughter also in agreement at bedside
Anticipated Discharge: Within 24 hours
Subjective/Interval History
-
Date of Service: March 08, 2024
Patient resting comfortably in bed
able to pass some gas/small bowel movement
Pain is controlled with narcotic
Some nausea
Objective Data
-
Labs:
Laboratory Results
03/08/24
05:58
WBC 6.2
Hgb 9.7 L
Hct 29.8 L
Plt Count 272
Sodium 128 L
Potassium 3.8
Chloride 92 L
Carbon Dioxide 27
BUN 16
Creatinine 0.7
Glucose 124 H
Calcium 7.9 L
Total Bilirubin 0.8
AST 17
ALT < 10
Alkaline Phosphatase 110
Vital Signs:
Vital Signs
Temp Pulse Resp BP Pulse Ox
97.8 F 106 18 110/63 97
03/08/24 07:05 03/08/24 07:05 03/08/24 07:05 03/08/24 07:05 03/08/24 07:05
I&O
03/07/24 03/08/24 03/09/24
06:59 06:59 06:59
Intake Total 240 / 240 1320 / 1320
Balance 240 / 240 1320 / 1320
Review of Systems
-
Respiratory: Reports No Symptoms
Cardiac: Reports No Symptoms
Abdomen/GI: Reports No Symptoms
Physical Exam
-
General: No Apparent Distress and Comfortable
HEENT: Negative Oxygen
Respiratory: Clear to Auscultation
Cardiac: Regular Rhythm and S1/S2; Negative Murmur or Rub
GI: Soft, Tender (minimal and diffuse) and Distended; Negative Normal Bowel Sounds (Decreased bowel sounds)
Musculoskeletal: No Edema
Neuro: Awake, Alert, Oriented, No Motor Deficits and Nonfocal/Grossly Intact
Psych: Calm
[2024-03-08 15:00] VITALS: BP 106/74
[2024-03-08 15:55] VITALS: BP 106/74
[2024-03-08] MEDS: ROXICODONE 10 MG PO (20:41)
[2024-03-08 23:49] VITALS: BP 109/68
[2024-03-09] MEDS: ZOFRAN 4 MG IV ×2 (05:23→16:30)
[2024-03-09 05:43] LABS: Hematocrit 29.8 % (37.0-47.0); Hemoglobin 9.7 g/dL (12.0-16.0); Mean Corp Hgb Conc. 32.6 g/dL (33.0-37.0); Mean Corpuscular Hgb 29.3 pg (27.0-31.0); Mean Platelet Volume 9.6 fL (7.4-10.4); Platelet Count 270 10^3/uL (130-400); Red Blood Cell Count 3.31 10^6/uL (4.20-5.40); White Blood Cell Count 5.5 10^3/uL (4.8-10.8)
[2024-03-09 06:00] VITALS: BMI 26.4
[2024-03-09 06:02] LABS: Blood Urea Nitrogen 15 mg/dl (7-17); Carbon Dioxide 28 mmol/L (22-30); Chloride 95 mmol/L (98-107); Estimated Creatinine Clearance 64 ml/min; Glucose 93 mg/dl (70-99); Potassium 4.3 mmol/L (3.5-5.1); Sodium 130 mmol/L (135-145); eGFR > 60.00
[2024-03-09 08:06] VITALS: BP 107/66
[2024-03-09] MEDS: NEURONTIN 300 MG PO ×3 (08:17→21:53)
[2024-03-09] MEDS: ROXICODONE 5 MG PO (08:18)
--- NOTE | 2024-03-09 13:08 | W.PN.UPDATE ---
Update Note
Progress Note Update
Discussed patient's recent prior OSH imaging and most current CT imaging with Dr. Pederson yesterday on 03/08/2024. Upon review of recent CT with extensive metastatic ovarian cancer and prior concern for other evolving obstructions (ie GOO and SBO),
patient is not a candidate for a colonic stent per Dr. Pederson. Discussed with patient's primary internal medicine team this AM. Recommend ongoing Palliative Care discussions along with consideration of hospice placement as per primary team.
GI will sign-off. Please call back with any questions or concerns.
--- NOTE | 2024-03-09 13:15 | W.PN.HOSP.TC ---
Today's Communication/Plan
-
Monitor vitals
See plan
Hospice appropriate, awaiting disposition. manager mobile aware and will speak with the family
Son updated at bedside. Spoke with GI this morning and patient is not a candidate for any colonic stent
Assessment / Plan
Assessment / Plan
CT abdomen pelvis with contrast on 02/23/2024 per patient's records
1. Interval disease with infiltrative rectal tumor with trey metastatic disease, splenic metastases and questionable hepatic metastases.
2 Extensive peritoneal carcinomatosis again noted enlarging rectal mass resulting in worsening colonic obstruction with increased distention proximally
3.Increased prominence of the soft tissue along the transverse colon resulting in luminal narrowing and extrinsic compression of the transverse colon.
4.Peritoneal deposits becoming conspicuous along the gastroduodenal junction along with increased narrowing of the gastroduodenal junction.
5. multiple mildly distended loops of small bowel concerning for developing obstruction
CT a/p with IV/Oral contrast
Official read is not in -per radiology there is a glitch in EMR, will try to correct tomorrow. Short impression report provided by radiology over [place] text is just below
1). There are multiple peritoneal implants as detailed above which if clinically indicated, could be best further evaluated with PET scan including an area of soft tissue prominence at the distal sigmoid colon which may be malignant or secondary to
incomplete distention.
2). There is moderately extensive partially loculated ascites throughout the abdomen and pelvis.
3). There are approximately 8 subcentimeter low density splenic lesions which may be benign or malignant and could also be further evaluated with PET scan

Moderate ascites
-Ultrasound abdomen showing moderate ascites
-With history of known metastatic ovarian cancer/peritoneal carcinomatosis presumed malignant in nature unless proven otherwise
-Patient underwent paracentesis with drainage of 3.7 L of clear ascitic fluid
-Fluid studies showing T WBC 601, 94% mononuclear cell.
Primary ovarian cancer diagnosed in 2016
Metastatic to rectum/liver/spleen/liver
S/p hysterectomy and BSO
Recurrence in 2019 requiring debulking surgery/chemotherapy
-Chemo 2020 unsure name then started Avastin
�2021 with Lynparza till September 2022
-Metastases of primary ovarian cancer was started on elchara in September 30 23 x 3 > Doxil January 2024 and February 27, 2024 at [facility]
Partial colon obstruction
Gastroduodenal junction obstruction
Small bowel obstruction
-Significant peritoneal carcinomatosis with CTAP from outside facility showing multiple dilated small bowel loops concerning developing small bowel obstruction
-Involving gastroduodenal junction and possible gastric outlet obstruction developing as well
-Reported transverse colon lesion as well causing colonic obstruction
-Repeat CT abdomen pelvis report as above. Spoke with Dr. Chapman who spoke with Dr. Pederson and due to patient disease burden she is not a candidate for any colonic stent.
-Patient remains appropriate for home hospice placement. Patient have [id number] insurance and case management help will be required arranging hospice help. manager mobile aware
Hyponatremia
-presumed to be malignancy related
-May have component of hypervolemic hyponatremia as well
NIDDM
-Maintain on Janumet
Normocytic anemia
-Hgb 10.8, MCV 88.3
Chemotherapy-induced neuropathy
-Continue gabapentin 300 mg 3 times daily
DNR per patient's son RENO�[phone] please discuss all care with patient's son including any palliative/hospice patient's daughter also in agreement at bedside
General: No Apparent Distress and Comfortable
HEENT: Negative Oxygen
Respiratory: Clear to Auscultation
Cardiac: Regular Rhythm and S1/S2; Negative Murmur or Rub
GI: Soft, Tender (minimal and diffuse) and Distended; Negative Normal Bowel Sounds (Decreased bowel sounds)
Neuro: Awake, Alert, Oriented, No Motor Deficits and Nonfocal/Grossly Intact
Psych: Calm
I spent a total of 52 minutes with the patient or on the floor. More than 50% of this time involved counseling and coordination of care.
Anticipated Discharge: Today
Subjective/Interval History
-
Date of Service: March 09, 2024
Denies nausea
Objective Data
-
Labs:
Laboratory Results
03/09/24
05:07
WBC 5.5
Hgb 9.7 L
Hct 29.8 L
Plt Count 270
Sodium 130 L
Potassium 4.3
Chloride 95 L
Carbon Dioxide 28
BUN 15
Creatinine 0.8
Glucose 93
Calcium 8.0 L
Vital Signs:
Vital Signs
Temp Pulse Resp BP Pulse Ox
98.1 F 108 20 107/66 97
03/09/24 08:06 03/09/24 08:06 03/09/24 08:06 03/09/24 08:06 03/09/24 08:06
I&O
03/08/24 03/09/24 03/10/24
06:59 06:59 06:59
Intake Total 1320 / 1320 1680 / 1680 240 / 240
Balance 1320 / 1320 1680 / 1680 240 / 240
--- NOTE | 2024-03-09 15:19 | CM ---
indicated hospice appropriate.
Following Hospice agencies contacted :
[facility] does not take pts insurance.
[facility] does not take pts insurance.
[facility] does not take pts insurance.
Contacted [facility] [phone] who is checking with their intake.
PLAN Locate hospice agency covered by her insurance
[2024-03-09 16:05] VITALS: BP 127/75
[2024-03-09] MEDS: ROXICODONE 10 MG PO (16:29)
[2024-03-09 23:10] VITALS: BP 107/67
[2024-03-10] MEDS: ROXICODONE 10 MG PO (02:12)
[2024-03-10 06:41] VITALS: BMI 24.6
[2024-03-10 07:10] VITALS: BP 108/59
[2024-03-10 07:39] LABS: % Basophils 0.5 % (0-2); % Eosinophils 0.5 % (0-6); % Immature Granulocytes 0.7 % (0-0.5); % Lymphocytes 27.3 % (20.5-51.1); % Monocytes 9.4 % (1.7-9.3); % Neutrophils 61.6 % (42.2-75.2); Absolute Lymphocytes 1.2 10^3/uL (1.2-3.4); Absolute Monocytes 0.4 10^3/uL (0.1-0.6); Absolute Neutrophils 2.7 10^3/uL (1.4-6.5); Hematocrit 29.4 % (37.0-47.0); Hemoglobin 9.5 g/dL (12.0-16.0); Mean Corp Hgb Conc. 32.3 g/dL (33.0-37.0); Mean Corpuscular Hgb 29.2 pg (27.0-31.0); Mean Corpuscular Volume 90.5 fL (81.0-99.0); Mean Platelet Volume 9.7 fL (7.4-10.4); Nucleated Red Blood Cells % 0.5 %; Platelet Count 292 10^3/uL (130-400); Red Blood Cell Count 3.25 10^6/uL (4.20-5.40); Red Cell Dist. Width 15.4 % (11.5-14.5); White Blood Cell Count 4.4 10^3/uL (4.8-10.8)
[2024-03-10 08:11] LABS: Blood Urea Nitrogen 15 mg/dl (7-17); Calcium 8.1 mg/dl (8.4-10.2); Carbon Dioxide 26 mmol/L (22-30); Chloride 96 mmol/L (98-107); Estimated Creatinine Clearance 65 ml/min; Glucose 93 mg/dl (70-99); Potassium 4.2 mmol/L (3.5-5.1); Sodium 130 mmol/L (135-145); eGFR > 60.00
[2024-03-10] MEDS: NEURONTIN 300 MG PO ×2 (08:50→15:19)
[2024-03-10] MEDS: ZOFRAN 4 MG IV (08:55)
--- NOTE | 2024-03-10 09:43 | CM ---
Addendum entered by Tammi Barreto RN 03/10/24 16:44:
Met with patient, son Yogesh (cell [phone]) with Julia & Skye from [facility] (fax [phone]); he decided he would like [facility] as they can start hospice today and they offered prorated rate on hospice services while
patient is under her existing Medicaid plan in February. Son is signing patient up for an [facility] plan which will be effective 03/14/24. He feels comfortable taking his mother home in the car today with w/c assist by nurses to get patient
into car, and using new w/c at home that [facility] will have delivered at 5:30pm to their house today. Hospital bed, commode and overbed table to be delivered tomorrow. He is aware [facility] will provide pain meds for his mother at home.
Dre at [facility] aware family chose another agency.
Plan home today with [facility].
Addendum entered by Tammi Barreto RN 03/10/24 13:43:
Spoke with patient's son Yogesh; he met with Linda from [facility] and is still concerned about their proposed costs ($250/day). He agrees to a referral to [facility] with their proposed rate of $220.50/day).
Spoke with Dre [facility] ([phone]); he will reach out to the son and discuss hospice and private pay hospice costs.
Plan follow up with [facility].
Original Note:
Scottish speaking patient with Hx metastatic ovarian cancer. Room air. Clear liquids. Receiving Roxicodone prn, Zofran prn. No PT/OT needs. Seen by Hospice.
Spoke with Julia [facility], office [phone], cell [phone] (formerly [facility]); provided clinical update. Julia is aware that patient may have [facility] Medicaid insurance plan through [facility]. She will
speak with the son and see if they can accept the referral with the existing insurance or as a anjelica case.
Spoke with nurse Rosibel; patient awake/alert/conversant speaking Scottish. Patient taking clear liquids with some nausea. Family has been taking turns staying with the patient.
Plan follow up with [facility] for acceptance then speak with patient/family.
--- NOTE | 2024-03-10 12:21 | W.PN.HOSP.TC ---
Addendum entered and electronically signed by Jacinto Escobar MD 03/10/24 15:40:
Discussed with continuous pillowcase cutter and patient's son. Patient's son is willing to private pay hospice check and see patient tonight until insurance switch. Discussed with son over the phone and he has enough medications until tomorrow and hospice will
see patient tonight and will refill all the medications. Patient for discharge today on hospice
Time of discharge 38 minutes
Original Note:
Today's Communication/Plan
-
Monitor vital signs
see plan
Pain control, Zofran
Awaiting dispo to hospice
Discussed with daughter at bedside
Assessment / Plan
Assessment / Plan
CT abdomen pelvis with contrast on 02/23/2024 per patient's records
1. Interval disease with infiltrative rectal tumor with trey metastatic disease, splenic metastases and questionable hepatic metastases.
2 Extensive peritoneal carcinomatosis again noted enlarging rectal mass resulting in worsening colonic obstruction with increased distention proximally
3.Increased prominence of the soft tissue along the transverse colon resulting in luminal narrowing and extrinsic compression of the transverse colon.
4.Peritoneal deposits becoming conspicuous along the gastroduodenal junction along with increased narrowing of the gastroduodenal junction.
5. multiple mildly distended loops of small bowel concerning for developing obstruction
CT a/p with IV/Oral contrast
Official read is not in -per radiology there is a glitch in EMR, will try to correct tomorrow. Short impression report provided by radiology over Dante text is just below
1). There are multiple peritoneal implants as detailed above which if clinically indicated, could be best further evaluated with PET scan including an area of soft tissue prominence at the distal sigmoid colon which may be malignant or secondary to
incomplete distention.
2). There is moderately extensive partially loculated ascites throughout the abdomen and pelvis.
3). There are approximately 8 subcentimeter low density splenic lesions which may be benign or malignant and could also be further evaluated with PET scan

Moderate ascites
-Ultrasound abdomen showing moderate ascites
-With history of known metastatic ovarian cancer/peritoneal carcinomatosis presumed malignant in nature unless proven otherwise
-Patient underwent paracentesis with drainage of 3.7 L of clear ascitic fluid
-Fluid studies showing T WBC 601, 94% mononuclear cell.
Primary ovarian cancer diagnosed in 2016
Metastatic to rectum/liver/spleen/liver
S/p hysterectomy and BSO
Recurrence in 2019 requiring debulking surgery/chemotherapy
-Chemo 2020 unsure name then started Avastin
�2021 with Lynparza till September 2022
-Metastases of primary ovarian cancer was started on elchara in September 30 23 x 3 > Doxil January 2024 and February 27, 2024 at [facility]
Partial colon obstruction
Gastroduodenal junction obstruction
Small bowel obstruction
-Significant peritoneal carcinomatosis with CTAP from outside facility showing multiple dilated small bowel loops concerning developing small bowel obstruction
-Involving gastroduodenal junction and possible gastric outlet obstruction developing as well
-Reported transverse colon lesion as well causing colonic obstruction
-Repeat CT abdomen pelvis report as above. Spoke with Dr. Chapman who spoke with Dr. Pederson and due to patient disease burden she is not a candidate for any colonic stent.
-Patient remains appropriate for home hospice placement. Patient have [id number] insurance and case management help will be required arranging hospice help. rn manager aware
Hyponatremia
-presumed to be malignancy related
-May have component of hypervolemic hyponatremia as well
NIDDM
-Maintain on Janumet
Normocytic anemia
monitor
Chemotherapy-induced neuropathy
-Continue gabapentin 300 mg 3 times daily
DNR per patient's son RENO�[phone] please discuss all care with patient's son including any palliative/hospice patient's daughter also in agreement at bedside
General: No Apparent Distress and Comfortable
HEENT: Negative Oxygen
Respiratory: Clear to Auscultation
Cardiac: Regular Rhythm and S1/S2; Negative Murmur or Rub
GI: Soft, Distended; non tender; Negative Normal Bowel Sounds (Decreased bowel sounds)
Neuro: Awake, Alert, Oriented, No Motor Deficits and Nonfocal/Grossly Intact
Psych: Calm
Anticipated Discharge: Within 24 hours
Subjective/Interval History
-
Date of Service: March 10, 2024
denies pain
Objective Data
-
Labs:
Laboratory Results
03/10/24
07:09
WBC 4.4 L
Hgb 9.5 L
Hct 29.4 L
Plt Count 292
Sodium 130 L
Potassium 4.2
Chloride 96 L
Carbon Dioxide 26
BUN 15
Creatinine 0.7
Glucose 93
Calcium 8.1 L
Vital Signs:
Vital Signs
Temp Pulse Resp BP Pulse Ox
97.8 F 102 17 108/59 96
03/10/24 07:10 03/10/24 07:10 03/10/24 07:10 03/10/24 07:10 03/10/24 09:26
I&O
03/09/24 03/10/24 03/11/24
06:59 06:59 06:59
Intake Total 1680 / 1680 240 / 240
Balance 1680 / 1680 240 / 240
[2024-03-10] MEDS: ROXICODONE 5 MG PO (12:35)
[2024-03-10 15:07] VITALS: BP 112/75
--- NOTE | 2024-03-10 15:39 | W.DCSUMMARY ---
Discharge Summary
Discharge Data
Date of Admission: 03/06/24
Date of Discharge: 03/10/24
-
Pending Results: No
Hospital Course
63-year-old female with ovarian cancer metastases to rectum/liver/spleen, status post hysterectomy, recurrence of ovarian cancer requiring debulking surgery/chemotherapy came to the hospital with moderate volume ascites which was likely thought was
secondary to peritoneal carcinomatosis. Patient underwent paracentesis by IR. Patient recently moved [place] and it appeared that prior to admission patient and family was unable to get outpatient care. Patient
had extensive cancer treatment and workup and [place] and family appeared to be interested in palliative care/hospice. Patient also had abdominal imaging consistent with partial colonic obstruction and small bowel obstruction. Initially GI
thought patient could get palliative colonic stent however after discussing with interventional cardiology due to patient malignancy burden, stent was not recommended. Given these findings patient family was agreeable for hospice due to patient
declining clinical status. Once patient family agreed on home hospice, patient was then discharged with instructions to follow-up with all her physicians outpatient.
Discharge Plan
-
Patient Disposition: Home with Hospice
Discharge Diagnosis/Procedures: Ascites secondary to metastatic ovarian cancer/peritoneal carcinomatosis
Partial colonic obstruction
Small bowel obstruction
Hyponatremia chemotherapy induced neuropathy
Hyponatremia
Diet: Other diet
Additional Diets: Comfort feeds, preferably liquid or pur�ed diet
Activity: As tolerated
Driving Restrictions: Not until seen by your Dr
Bathing Restrictions: None
Other Services: Hospice
Referrals:
UNKNOWN - PT DOES,NOT KNOW [Unknown Provider] - in less than 1 week
Prescriptions:
New
oxycodone 5 mg Tablet
5 mg PO Q4HPRN PRN (Reason: severe pain) Qty: 0 0RF
Continued
gabapentin 300 mg Capsule
300 mg PO TID
metoclopramide HCl 10 mg Tablet
10 mg PO DAILYPRN PRN (Reason: gerd)
oxycodone 5 mg Tablet
5 mg PO QID
Patient Comments:
03/05/24: Per family patient fills in [place], unable to crosscheck on PDMP
ondansetron 4 mg Tablet,Disintegrating
4 mg PO Q8HPRN PRN (Reason: nausea)
Discontinued
Janumet 50-1,000 mg Tablet
1 tab PO BIDPRN PRN (Reason: low blood sugar)
Discharge Orders:
Discharge Patient (As Directed); Ordered 03/10/24
Ordered By: Jacinto Escobar
Discharge Date and Time
Discharge Date/Time: 03/10/24 18:50
Print Language: ANGUILLAN
== END 2024-03-10 18:50 | disposition hospice, home (50) | DRG 375 ==
LOC: 3 WEST ACU
PROVIDERS: Clinical Nurse Specialist Family Health; Hospitalist; Physician Assistant; Radiology Vascular & Interventional Radiology; ADMITTING PHYSICIAN Hospitalist; ATTENDING PHYSICIAN Internal Medicine; CONSULT PHYSICIAN Student in an Organized Health Care Education/Training Program; EMERGENCY PHYSICIAN Emergency Medicine; FAMILY PHYSICIAN Internal Medicine
PROC: 0W9G3ZZ Drainage of Peritoneal Cavity, Percutaneous Approach (ICD-10-PCS; 2024-03-06)
DX: C78.6 Secondary malignant neoplasm of retroperitoneum and peritoneum (principal); C78.5 Secondary malignant neoplasm of large intestine and rectum; C78.7 Secondary malignant neoplasm of liver and intrahepatic bile duct; E87.1 Hypo-osmolality and hyponatremia; R18.0 Malignant ascites; K56.690 Other partial intestinal obstruction; Z66 Do not resuscitate; Z51.5 Encounter for palliative care; C78.89 Secondary malignant neoplasm of other digestive organs; E11.42 Type 2 diabetes mellitus with diabetic polyneuropathy; G89.29 Other chronic pain; G62.0 Drug-induced polyneuropathy; D63.0 Anemia in neoplastic disease; K21.9 Gastro-esophageal reflux disease without esophagitis; Z90.710 Acquired absence of both cervix and uterus; Z92.21 Personal history of antineoplastic chemotherapy; Z92.3 Personal history of irradiation; Z79.84 Long term (current) use of oral hypoglycemic drugs; Z79.891 Long term (current) use of opiate analgesic; Z88.0 Allergy status to penicillin; Z85.43 Personal history of malignant neoplasm of ovary; Z79.899 Other long term (current) drug therapy
CPT/HCPCS: 88305; 49083; 51701; 51798; 71046; 74177; 76705; 80048; 80053; 81003; 81015; 82042; 82150; 83615; 83880; 83930; 83935; 84157; 84300; 84439; 84443; 85025; 85027; 87015; 87070; 87205; 88112; 88341; 88342; 89051; 99285; Q9967